=== PATIENT | male | born 1965 | race Caucasian/White ===

== ENCOUNTER 2016-07-26 09:44 | Day surgery (SDC) | payer OTHER ==
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
[~2016-07-26 09:44] MED LIST: Buffered Lidocaine 1% SYR 3ML* 3 ML/SYR SYRINGE INTRADERM ONE
[2016-07-26] MEDS ORDERED: ceFAZolin 2 GM PREMIX(*) 2 GM/50 ML BAG IVPB ONE (09:55)
[2016-07-26] MEDS ORDERED: Sodium Citrate/Citric Acid* 15 ML UDC ONE (10:25)
[2016-07-26] MEDS ORDERED: Bupivacaine 0.25% EPI 200,000* 30 ML SDV ONE (10:27)
[2016-07-26] MEDS ORDERED: Bupivacaine 0.25% SDV* 30 ML ONE (10:45)
[2016-07-26] MEDS ORDERED: Midazolam* 1 MG/ML 2 ML VIAL (2 MG) ONE (11:46)
[2016-07-26] MEDS ORDERED: Propofol* 10 MG/ML 20 ML BTL IV PUSH ONE (11:46)
[2016-07-26] MEDS ORDERED: fentaNYL* 50 MCG/ML 2 ML VIAL (100 MCG VIAL) ONE (11:46)
[2016-07-26] MEDS ORDERED: ROPIVACAINE 5 MG/ML 30 ML BTL (0.5%) ONE ×2 (11:55)
[2016-07-26] MEDS ORDERED: Ondansetron INJ* 2 MG/ML VIAL IV PRN (12:52)
[2016-07-26] MEDS ORDERED: fentaNYL* 50 MCG/ML 2 ML VIAL (100 MCG VIAL) IV PRN (12:52)
[2016-07-26] MEDS ORDERED: Dexamethasone IV* 4 MG/ML 1 ML (4 MG) ONE (12:55)
[2016-07-26 14:40] VITALS: BP 120/79
--- NOTE | 2016-07-27 01:23 | OP ---
DATE OF OPERATION: 07/26/16 [facility] DATE OF : 65 SURGEON: Jaelyn Serrano MD CLOAK ROOM ATTENDANT: IVONNE Metcalf. An camp assistant was needed for the entirety of the case to help with positioning, retraction, and was utilized throughout all portions of the case. ANESTHESIOLOGIST: Alfonso Fields DO ANESTHESIA: General interscalene block. PRE-OP DIAGNOSIS: Right shoulder impingement with acromioclavicular joint arthritis and biceps tendinitis. POST-OP DIAGNOSIS: Right shoulder impingement with acromioclavicular joint arthritis and biceps tendinitis. OPERATIVE PROCEDURE: 1. Right shoulder arthroscopy with extensive glenohumeral debridement including biceps tenotomy and debridement of the rotator cuff. 2. Subacromial decompression with acromioplasty. 3. Distal clavicle incision. 4. Subacromial injection with 80 mg of Depo-Medrol. COMPLICATIONS: None. ESTIMATED BLOOD LOSS: Minimal. INDICATIONS: Farhan Mistry is a 50-year-old inmate who has had bilateral impingement with AC joint arthritis. He has failed injections and physical therapy. He responded well to surgery on the left shoulder and has elected to proceed with the surgery on the right shoulder. Risks and benefits of surgery were discussed at length that include but are not limited to bleeding; infection ; damage to nerves, vessels, and surrounding structures; wound nonhealing; persistent pain; need for further surgery; and risks of anesthesia. He elected to proceed. DESCRIPTION OF PROCEDURE: The patient was greeted in the preoperative area by the attending surgeon. Correct extremity was marked and consent was confirmed. The patient was brought back to the operating suite, where he was placed in supine position on the operating table. He was then underwent interscalene nerve block by the anesthesiologist, which he tolerated without difficulty. The patient then underwent general anesthesia with endotracheal intubation after which the patient was placed in the left lateral decubitus position with axillary roll that was placed. The patient was secured with pegboard and all bony prominences were padded. The right arm was draped unsterile with 10 pounds of traction. The right shoulder was then prepped and draped in the usual sterile fashion beginning with chlorhexidine, soap scrub, and alcohol wipe and a final prep with ChloraPrep. After appropriate surgical pause indicating site, side, procedure, and administration of antibiotics; a standard postero-lateral portal was made sharply with 11 blade. The scope was introduced into the joint and the joint was examined. There was abundant hyperemia and erythema in the joint. The undersurface of the rotator cuff had partial tearing, but 5% on the left with a small unstable flap. The biceps had tendinopathy as well as tendinitis. Superior labrum was torn. Anterior and posterior labrum had unstable tearing. The inferior recess was intact. The anterior portal was made in an outside-in fashion. The shaver was used to debride the anterior, posterior, and superior labrum. The undersurface of the rotator cuff, the biceps was then tenotomized because of the tendinitis and tendinopathy. The subscap was identified and was intact and then the supraspinatus tendon tear was probed with a needle and then marked for identification on the subacromial space. The scope was then repositioned in the subacromial space. The abundant bursa was identified. There was a very thick layer that was adherent to the rotator cuff, which was carefully released using the shaver and electrocautery device. This extended to the undersurface of the acromion, which was skeletonized using the electrocautery device. There was an anterolateral spur and calcification of the CA ligament. This was carefully peeled back and then an acromioplasty was done using 4-0 oval bur. All loose debris and tissue were removed and then attention was directed to the AC joint. There was abundant arthritis and stenosis at the AC joint as well as an inferior spur. The bur was then brought in to the anterior portal and a distal clavicle excision was done with care to preserve the CC ligaments. Visualization for the 30- degree and 70-degree scope was utilized to make sure that all bony places were carefully removed. The clavicle was then probed and then it was checked to make sure that there was no excess bony debris that was present. All loose debris and fluid were removed. At this point, an 18-gauge needle was then placed in the subacromial space under arthroscopic visualization and 80 mg of Depo-Medrol with 3 cc of 0.25% Marcaine were injected in the subacromial space. The portals were closed with 3-0 nylon. Sterile dressings were applied and the Cryo/Cuff was placed and the patient was awoken from anesthesia in a regular sling. He was then transferred to the PACU. POSTOPERATIVE PLAN: He will be nonweightbearing. He will be allowed to work on range of motion as tolerated. He will be discharged on pain medications and DVT prophylaxis was considered, but deferred due to no previous personal or family history. I will see the patient back in 10 to 14 days. [id number]/[facility] #: [id number] MTDD
== END 2016-07-26 14:43 | disposition home or self-care (01) ==
LOC: OREAST 09:44
PROVIDERS: ATTEND Orthopaedic Surgery
DX: M75.41 Impingement syndrome of right shoulder (principal); M19.011 Primary osteoarthritis, right shoulder; M75.21 Bicipital tendinitis, right shoulder
CPT/HCPCS: 88304; A9270-GY; J0690; J1100; J2250; J2704; J2795; J3010

== ENCOUNTER 2017-02-18 09:07 | Day surgery (SDC) | payer OTHER ==
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
[~2017-02-18 09:07] MED LIST changes: +Buffered Lidocaine 0.9% SYRIN* 5 ML/SYR SYRINGE INTRADERM ONE; -Buffered Lidocaine 1% SYR 3ML* 3 ML/SYR SYRINGE INTRADERM ONE
[2017-02-18] MEDS ORDERED: ceFAZolin 2 GM PREMIX (*) 2 GM/50 ML BAG IVPB ONE (09:19)
[2017-02-18] MEDS ORDERED: fentaNYL* 50 MCG/ML 2 ML VIAL (100 MCG VIAL) ONE (10:14)
[2017-02-18] MEDS ORDERED: Midazolam* 1 MG/ML 5 ML VIAL (5 MG) ONE (10:14)
[2017-02-18] MEDS ORDERED: Bupivacaine 0.25% SDV* 30 ML ONE ×2 (10:20→10:41)
[2017-02-18] MEDS ORDERED: Propofol* 10 MG/ML 20 ML BTL IV PUSH ONE (10:34)
[2017-02-18] MEDS ORDERED: Atracurium* 10 MG/ML 10 ML VIAL ONE (10:34)
[2017-02-18] MEDS ORDERED: Dexamethasone IV* 4 MG/ML 1 ML (4 MG) ONE (10:58)
[2017-02-18] MEDS ORDERED: Ketorolac INJ* 30 MG/ML 1 ML VIAL ONE (11:51)
[2017-02-18] MEDS ORDERED: Ondansetron INJ* 2 MG/ML VIAL ONE (11:51)
[2017-02-18] MEDS ORDERED: Glycopyrrolate IV* 0.2 MG/ML 1 ML VIAL ONE (12:00)
[2017-02-18] MEDS ORDERED: Neostigmine Methylsulfate* 2 MG/2 ML SYRINGE ONE (12:00)
[2017-02-18] MEDS ORDERED: fentaNYL* 50 MCG/ML 2 ML VIAL (100 MCG VIAL) IV PRN (12:14)
[2017-02-18] MEDS ORDERED: HYDROcodone/ACETAMIN 5-325 MG* 1 TAB PO PRN (12:14)
[2017-02-18] MEDS ORDERED: HYDROmorphone INJ* 1 MG/ML CARPUJECT SYRINGE IV PRN (12:14)
[2017-02-18] MEDS ORDERED: oxyCODONE TAB* 5 MG TAB PO PRN (12:14)
[2017-02-18] MEDS ORDERED: DiMENhydriNATE IV* 50 MG/ML VIAL IV PUSH PRN (12:14)
[2017-02-18] MEDS ORDERED: Ondansetron INJ* 2 MG/ML VIAL IV PRN (12:14)
[2017-02-18] MEDS ORDERED: Levalbuterol 1.25MG/0.5ML NEB INH PRN (12:14)
[2017-02-18 13:41] VITALS: BP 117/81
--- NOTE | 2017-02-19 01:27 | OP ---
DATE OF OPERATION: 02/18/17 [facility] DATE OF : 65 SURGEON: Jaelyn Serrano MD NETWORK ASSOCIATE: IVONNE Metcalf ANESTHESIOLOGIST: Dr. Reeves. ANESTHESIA: General with interscalene block. PRE-OP DIAGNOSIS: Right shoulder high-grade partial thickness rotator cuff tear. POST-OP DIAGNOSIS: Right shoulder high-grade partial thickness rotator cuff tear. OPERATIVE PROCEDURE: Right shoulder arthroscopy with debridement, revision, decompression including revision acromioplasty as well as rotator cuff repair in double row fashion. IMPLANTS USED: One 4.75 Healicoil, one MultiFix. COMPLICATIONS: None. ESTIMATED BLOOD LOSS: Minimal. INDICATIONS: Farhan Mistry is a 51-year-old inmate who has high-grade partial thickness rotator cuff tear, who had previous surgery arthroscopic decompression and debridement, biceps tenotomy who had persistent pain. He failed conservative management. He had an MRI showing worsening tear. Risks and benefits were discussed at length and he has elected to proceed with surgical treatment. Risks included, but not limited to bleeding, infection, damage to nearby vessels, surrounding structures, wound nonhealing, persistent pain,need for further surgery, scarring, stiffness, incomplete relief of symptoms, risk of anesthesia, risk of failure. He was elected to proceed. DESCRIPTION OF PROCEDURE: The patient was greeted in the preoperative area by the attending surgeon. Correct extremity was marked and consent was confirmed. The patient then underwent interscalene nerve block by the anesthesiologist after which he was brought back to the operating suite where he was placed in supine position on the operating room table. He then underwent general anesthesia with endotracheal intubation after which the patient was placed in the left lateral decubitus position with axillary roll. All bony prominences were padded. He was secure with a peg board. The right shoulder was draped unsterilely on 10 pounds of traction. The right shoulder was prepped and draped in the usual sterile fashion beginning with chlorhexidine soap, scrub, and alcohol wipe and final prep of ChloraPrep. After appropriate surgical pause indicating side, site, procedure, and administration of antibiotics, a posterolateral portal was made sharply with an 11 blade. The scope was introduced into the joint. The joint was examined. There was abundant hyperemic synovitis in the shoulder. The inner surface of the rotator cuff had tearing. Subscapularis was intact. The anterior portal was then made in an outside-in fashion and debridement of the anterior, posterior, superior labrum was done of the synovial tissues outside of the glenohumeral joint. The glenohumeral joint had grade 0 to 1 changes. Inferior recess had abundant synovitis. The subscap was intact. At this point, the rotator cuff was marked with a PDS suture to identify the tear on the bursal side. The scope was then positioned in the subacromial space. Lateral portal was made in an outside-in fashion. The shaver was then used to debride the bursa. The rotator cuff was probed and found to have high-grade partial thickness tearing. The acromion was then skeletonized using the electrocautery device. There was very small remnant of spur, which was debrided back using the arthroscopic radha. All debris was cleared after this. Attention was directed to the rotator cuff. The tear was completed using the electrocautery device as well as 11 blade. The tear was used to debride back the rotator cuff. The greater tuberosity was prepared using the electrocautery device, the shaver, the arthroscopic radha to decorticate as well as the rasp. Once this was done, awl was used to put one 4.75 anchor into medial aspect of the footprint with excellent purchase. The awl was then used to make other small micro-fracture like holes to allow for bony bleeding. The rotator cuff was immobilized. Once the anchor was placed and sutures were passed through horizontal mattress configuration and tied down using arthroscopic knot tying. The sutures were passed through a separate anchor for lateral row fixation and MultiFix, which was then deployed laterally with excellent purchase. Final images were obtained. The shoulder was taken through range of motion. The wounds were copiously irrigated with sterile saline. The portals were closed with 3-0 nylon. Sterile dressings were applied as well as Cryo/Cuff and an UltraSling. He was awoken from anesthesia and transferred to the PACU in stable condition. POSTOPERATIVE PLAN: He will be nonweightbearing. No range of motion of the shoulder. He will start active range of motion of the elbow, wrist, and hand beginning tomorrow. He will be discharged on pain medication. DVT prophylaxis considered but deferred due to no previous personal or family history. I will see the patient back in 10 to 14 days. [id number]/[facility] #: [id number] MTDDena
== END 2017-02-18 13:30 ==
LOC: OR 09:07
PROVIDERS: ATTEND Orthopaedic Surgery
DX: M75.111 Incomplete rotator cuff tear or rupture of right shoulder, not specified as traumatic (principal); Z72.0 Tobacco use; E78.00 Pure hypercholesterolemia, unspecified; K22.70 Barrett's esophagus without dysplasia; K21.9 Gastro-esophageal reflux disease without esophagitis; K27.9 Peptic ulcer, site unspecified, unspecified as acute or chronic, without hemorrhage or perforation; E66.9 Obesity, unspecified
CPT/HCPCS: C1713; J0690; J1100; J1885; J2250; J2405; J2704; J3010